=== PATIENT | male | born 1985 | race Caucasian/White ===

== ENCOUNTER 2020-07-17 08:52 | Outpatient (CLI) | payer MEDICARE, OTHER, SELFPAY ==
--- NOTE | ~2020-07-17 | XR_ITS ---
XR foot LT min 3V 07/17/2020 09:10 Indication: Left foot pain Procedure: 4 views left foot Comparison: Comparison to multiple prior studies sequentially, with oldest reviewed study dated 07/2015. Findings: There are surgical clips medial to the left ankle. Moderate diffuse soft tissue swelling. T here is a surgical staple lateral to the fourth MTP joint. 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 Lisfranc joint intact Impression: 1: Moderate soft tissue swelling surrounding the ankle and hindfoot, nonspecific. 2: No acute bone or joint abnormality. Reviewed, dictated and finalized at location B. EDICAL TECHNICIAN Impression: 1: Moderate soft tissue swelling surrounding the ankle and hindfoot, nonspecifi c. 2: No acute bone or joint abnormality.
== END 2020-07-17 08:53 | disposition home or self-care (01) ==
LOC: ANHIMG 09:03
PROVIDERS: PCP Family Medicine; Visit Provider Surgery Plastic and Reconstructive Surgery
DX: M79.672 Pain in left foot (principal); M79.89 Other specified soft tissue disorders
CPT/HCPCS: 73630

== ENCOUNTER 2022-04-20 15:14 | Outpatient (CLI) | payer MEDICARE, SELFPAY ==
--- NOTE | ~2022-04-20 | XR_ITS ---
XR foot LT min 3V DATE: 04/20/2022 16:11 INDICATION: Localized swelling, mass, lump, pain TECHNIQUE: 4 views COMPARISON: July 17, 2020 left foot FINDINGS: Status post septation at the proximal shaft of the fifth metatarsal bone. No fracture, dislocation, periosteal reaction or bone destruction is detected. There is mild plantar and posterior calcaneal enthesopathy. There is osteoarthritic change at the tarsal area. Surgical clips are noted in the distal lower leg and ankle region. There is a stable the lateral aspe ct of the fourth metatarsal head. 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 RAM CONSULTANT IMPRESSION: Status post amputation at the proximal shaft of the fifth metatarsa l bone Mild plantar and posterior calcaneal enthesopathy Postoperative change around the ankle area Tarsal osteoarthritis No significant change since July 17, 2020
== END 2022-04-20 15:15 | disposition home or self-care (01) ==
LOC: ANHIMG 15:30
PROVIDERS: PCP Family Medicine; Visit Provider Surgery Plastic and Reconstructive Surgery
DX: M77.32 Calcaneal spur, left foot (principal); M19.072 Primary osteoarthritis, left ankle and foot
CPT/HCPCS: 73630

== ENCOUNTER 2022-05-06 14:39 | Outpatient (CLI) | payer MEDICARE, SELFPAY ==
[2022-05-06 15:50] LABS: Alanine Aminotransferase 67 U/L (6-50); Aspartate Amino Transferase 44 U/L (17-59)
== END 2022-05-06 14:40 | disposition home or self-care (01) ==
LOC: ANHLAB 14:41
PROVIDERS: PCP Family Medicine; Visit Provider Podiatrist Foot & Ankle Surgery
DX: B35.1 Tinea unguium (principal)
CPT/HCPCS: 36415; 84450; 84460

== ENCOUNTER 2022-08-05 13:58 | Outpatient (CLI) | payer MEDICARE, SELFPAY ==
[2022-08-05 15:29] LABS: Alanine Aminotransferase 77 U/L (6-50); Aspartate Amino Transferase 55 U/L (17-59)
== END 2022-08-05 13:59 | disposition home or self-care (01) ==
PROVIDERS: PCP Family Medicine; Visit Provider Podiatrist Foot & Ankle Surgery
DX: B35.1 Tinea unguium (principal)
CPT/HCPCS: 36415; 84450; 84460